=== PATIENT | male | born 1950 | race Caucasian/White ===

== ENCOUNTER 2018-05-21 16:24 | Emergency (ER) | payer OTHER, MEDICARE ==
[~2018-05-21] VITALS: Ht 185.4 cm; Wt 113.6 kg
[~2018-05-21 16:24] MED LIST: AND5P TD; BENA5TAB7 PO; FIOCOC PO
[2018-05-21 17:11] LABS: BASOPHILS % (AUTO) 0.4 % (0-1); EOSINOPHILS # (AUTO) 0.2 X10'3 (0-0.9); EOSINOPHILS % (AUTO) 3.1 % (0-6); HEMOGLOBIN 15.8 g/dl (14.0-17.9); LYMPHOCYTES # (AUTO) 1.2 X10'3 (1.1-4.8); LYMPHOCYTES % (AUTO) 23.4 % (21-51); MEAN CORPUSCULAR HEMOGLOBIN 31.4 PG (27.0-31.0); MEAN CORPUSCULAR HGB CONC 34.4 % (33.0-36.5); MEAN CORPUSCULAR VOLUME 91.5 FL (78-98); MEAN PLATELET VOLUME 8.7 FL (7.4-10.4); MONOCYTES # (AUTO) 0.8 X10'3 (0-0.9); MONOCYTES % (AUTO) 14.8 % (2-12); NEUTROPHILS % (AUTO) 58.3 % (42-75); PLATELET COUNT 235 X10'3 (140-440); RED BLOOD COUNT 5.03 X10'6 (4.70-6.10); RED CELL DISTRIBUTION WIDTH 12.9 % (11.5-14.5); WHITE BLOOD COUNT 5.1 X10'3 (4.5-11.0)
[2018-05-21 17:24] LABS: ALANINE AMINOTRANSFERASE 44 U/L (12-78); ALBUMIN 3.8 G/DL (3.4-5.0); ALBUMIN/GLOBULIN RATIO 1.1 (1.1-1.5); ALKALINE PHOSPHATASE 68 IU/L (46-116); ANION GAP 9 (8-16); ASPARTATE AMINO TRANSFERASE 29 U/L (10-37); BILIRUBIN,TOTAL 0.5 MG/DL (0.1-1.0); BLOOD UREA NITROGEN 13 MG/DL (7-18); CALCIUM 8.5 MG/DL (8.5-10.1); CHLORIDE 101 MMOL/L (99-107); GLUCOSE 175 MG/DL (70-104); POTASSIUM 3.5 MMOL/L (3.5-5.1); SODIUM 136 MMOL/L (135-145); TOTAL CARBON DIOXIDE 25.7 MMOL/L (24-32); TOTAL PROTEIN 7.3 G/DL (6.4-8.2); eGFR 55 ML/MIN
[2018-05-21 17:34] LABS: MAGNESIUM 2.1 MG/DL (1.5-2.4)
[2018-05-21] MEDS ORDERED: ipratropium/albuterol 3ml nebule NEB STA (17:55)
[2018-05-21] MEDS ORDERED: ALBU18HF2 INH (18:48)
[2018-05-21 18:53] VITALS: BP 169/78
== END 2018-05-21 18:54 | disposition home or self-care (01) ==
LOC: ER 16:24
DX: J45.909 Unspecified asthma, uncomplicated (principal); I10 Essential (primary) hypertension; Z79.899 Other long term (current) drug therapy
CPT/HCPCS: 36415; 71045; 80053; 83735; 83880; 84484; 85025; 93005; 94640; 94760; 99285

== ENCOUNTER 2021-12-09 04:51 | Inpatient (IN) | payer OTHER, MEDICARE ==
[~2021-12-09] VITALS: Ht 182.9 cm; Wt 113.6 kg
[~2021-12-09 04:51] MED LIST changes: +ALBU18HF2 INH; +BENA5TAB39 PO; -BENA5TAB7 PO
[2021-12-09 05:17] LABS: EOSINOPHILS # (AUTO) 0.2 X10'3 (0-0.9); NEUTROPHILS # (AUTO) 2.8 X10'3 (1.8-7.7); RED CELL DISTRIBUTION WIDTH 13.7 % (11.5-14.5); WHITE BLOOD COUNT 4.6 X10'3 (4.5-11.0)
[2021-12-09 05:19] LABS: BASOPHILS % (AUTO) 0.6 % (0-1); EOSINOPHILS % (AUTO) 3.8 % (0-6); HEMATOCRIT 53.9 % (42.0-52.0); LYMPHOCYTES % (AUTO) 21.5 % (21-51); MEAN CORPUSCULAR HEMOGLOBIN 30.7 PG (27.0-31.0); MEAN CORPUSCULAR HGB CONC 34.1 g/dL (33.0-36.5); MEAN PLATELET VOLUME 8.5 FL (7.4-10.4); MONOCYTES # (AUTO) 0.6 X10'3 (0-0.9); MONOCYTES % (AUTO) 12.4 % (2-12); NEUTROPHILS % (AUTO) 61.7 % (42-75); PLATELET COUNT 251 X10'3 (140-440); RED BLOOD COUNT 5.99 X10'6 (4.70-6.10)
[2021-12-09 05:29] LABS: HEMOGLOBIN 18.4 g/dl (14.0-17.9)
[2021-12-09 05:34] LABS: ALANINE AMINOTRANSFERASE 47 U/L (12-78); ALBUMIN 4.5 G/DL (3.4-5.0); ALKALINE PHOSPHATASE 88 IU/L (46-116); ANION GAP 12 (8-16); ASPARTATE AMINO TRANSFERASE 49 U/L (10-37); BILIRUBIN,TOTAL 0.7 MG/DL (0.1-1.0); BLOOD UREA NITROGEN 12 MG/DL (7-18); BUN/CREATININE RATIO 9.6 (5.4-32.0); CALCIUM 9.5 MG/DL (8.5-10.1); CHLORIDE 98 MMOL/L (99-107); CREATININE 1.25 MG/DL (0.60-1.10); GLUCOSE 143 MG/DL (70-104); POTASSIUM 3.6 MMOL/L (3.5-5.1); SODIUM 137 MMOL/L (135-145); TOTAL CARBON DIOXIDE 26.7 MMOL/L (24-32); eGFR 57 ML/MIN
--- NOTE | 2021-12-09 06:30 | NUR ---
Pt is awake and alert. at the bedside. Pt denies pain.
[2021-12-09] MEDS ORDERED: potassium CL 10mEq/100ml bag 100 ML IV PRN (09:20)
[2021-12-09] MEDS ORDERED: morphine 2 MG/ML inj. syringe IV PRN ×2 (09:20)
[2021-12-09] MEDS ORDERED: magnesium 4gm in 100ml NS 100 ML IV PRN (09:20)
[2021-12-09] MEDS ORDERED: magnesium hydroxide 30ml (MOM) UD suspension PO PRN (09:20)
[2021-12-09] MEDS ORDERED: regadenoson 0.4mg/5ml syringe IV PRN (09:20)
[2021-12-09] MEDS ORDERED: potassium Cl 20 mEq SR tablet PO PRN ×2 (09:20)
[2021-12-09] MEDS ORDERED: magnesium 2GM in 50ml NS 50 ML IV PRN (09:20)
[2021-12-09] MEDS ORDERED: metoprolol tartrate 1mg/ml inj IV PRN (09:20)
[2021-12-09] MEDS ORDERED: aminophylline 500mg/20ml vial IV PRN (09:20)
[2021-12-09] MEDS ORDERED: magnesium Cl slow-release 64mg tablet PO PRN (09:20)
[2021-12-09] MEDS ORDERED: nitroGLYCERIN 0.4mg SUBLingual tab SL PRN (09:20)
[2021-12-09] MEDS ORDERED: mag hydrox/Alum hydrox/simeth 30ml oral suspension PO PRN (09:20)
[2021-12-09] MEDS ORDERED: acetaminophen 325mg tablet PO PRN (09:20)
[2021-12-09] MEDS ORDERED: ondansetron/PF 4mg/2ml inj IV PRN (09:20)
[2021-12-09 10:02] LABS: MAGNESIUM 2.3 MG/DL (1.5-2.4)
[2021-12-09] MEDS: normal saline 1000ml 1,000 ML IV SCH ×2 (10:28→19:40)
[2021-12-09] MEDS ORDERED: BENA1TAB14 PO (12:29)
[2021-12-09 14:00] VITALS: BP 159/77
--- NOTE | 2021-12-09 14:14 | NUR ---
PAGER ID: [phone] MESSAGE: [id number] Ciaran admit to 3014B caffeine this am, fred tomorrow. HH diet for dinner? [id number]
[2021-12-09 18:00] VITALS: BP 128/83
--- NOTE | 2021-12-09 18:45 | NUR ---
Patient in room PCU 3014. I have received report from Ana M HERNANDEZ and had the opportunity to ask questions and assume patient care.
--- NOTE | 2021-12-09 18:53 | NUR ---
Report to Ruthie HERNANDEZ
[2021-12-09] MEDS: K and/or MAG REPLACEMENT MC SCH (19:11)
[2021-12-09] MEDS: docusate sod 100mg capsule PO SCH (19:41)
[2021-12-09 22:00] VITALS: BP 137/66
[2021-12-10] VITALS (11 sets, daily range): BP systolic 114–161; BP diastolic 53–76
--- NOTE | 2021-12-10 00:57 | NUR ---
cable television line technician notified me pt has gone into second degree type 1 three times. longer NM then dropping. Pt is otherwise in SR in the 70's-80's. Pt is resting comfortably with no complaints. Called hospitalist to let him know of the change. gave no new orders, will continue to monitor.
[2021-12-10] MEDS: normal saline 1000ml 1,000 ML IV SCH ×2 (05:26→15:20)
[2021-12-10 06:11] LABS: BASOPHILS % (AUTO) 0.6 % (0-1); EOSINOPHILS # (AUTO) 0.2 X10'3 (0-0.9); EOSINOPHILS % (AUTO) 3.6 % (0-6); HEMATOCRIT 47.7 % (42.0-52.0); HEMOGLOBIN 16.1 g/dl (14.0-17.9); LYMPHOCYTES # (AUTO) 0.8 X10'3 (1.1-4.8); LYMPHOCYTES % (AUTO) 17.7 % (21-51); MEAN CORPUSCULAR HEMOGLOBIN 30.6 PG (27.0-31.0); MEAN CORPUSCULAR HGB CONC 33.7 g/dL (33.0-36.5); MEAN CORPUSCULAR VOLUME 90.9 FL (78-98); MEAN PLATELET VOLUME 8.8 FL (7.4-10.4); MONOCYTES # (AUTO) 0.7 X10'3 (0-0.9); MONOCYTES % (AUTO) 15.7 % (2-12); NEUTROPHILS # (AUTO) 2.9 X10'3 (1.8-7.7); NEUTROPHILS % (AUTO) 62.4 % (42-75); PLATELET COUNT 227 X10'3 (140-440); RED BLOOD COUNT 5.24 X10'6 (4.70-6.10); RED CELL DISTRIBUTION WIDTH 13.7 % (11.5-14.5); WHITE BLOOD COUNT 4.7 X10'3 (4.5-11.0)
--- NOTE | 2021-12-10 06:28 | NUR ---
Patient in room PCU 3014. I have received report from DAVID Hendricks and had the opportunity to ask questions and assume patient care.
[2021-12-10 06:32] LABS: ALBUMIN 3.4 G/DL (3.4-5.0); ANION GAP 9 (8-16); BLOOD UREA NITROGEN 10 MG/DL (7-18); BUN/CREATININE RATIO 10.8 (5.4-32.0); CALCIUM 8.5 MG/DL (8.5-10.1); CHLORIDE 105 MMOL/L (99-107); CREATININE 0.93 MG/DL (0.60-1.10); GLUCOSE 101 MG/DL (70-104); SODIUM 139 MMOL/L (135-145); TOTAL CARBON DIOXIDE 25.5 MMOL/L (24-32); eGFR 80 ML/MIN
--- NOTE | 2021-12-10 06:43 | NUR ---
Patient in room [facility] 3014. I have received report from Aurora HERNANDEZ and had the opportunity to ask questions and assume patient care. Addendum: 12/10/21 at 0644 by Ruthie Mckeon RN Problems reprioritized. Patient report given, questions answered & plan of care reviewed with Aurora HERNANDEZ.
[2021-12-10 06:51] LABS: PLATELET ESTIMATE NORMAL; TOTAL CELLS COUNTED 100
[2021-12-10] MEDS ORDERED: non-formulary drug (Benazepril/Hydrochlorothiazide (Benazepril-Hctz 20-12.5 Mg Tab) 1 TAB) PO SCH (08:00)
[2021-12-10] MEDS ORDERED: enoxaparin 40mg/0.4ml syringe SUBCUT SCH (08:00)
[2021-12-10] MEDS ORDERED: HYDROchlorothiazide 12.5mg capsule PO SCH (08:00)
[2021-12-10] MEDS: K and/or MAG REPLACEMENT MC SCH (08:00)
[2021-12-10] MEDS: docusate sod 100mg capsule PO SCH (08:00)
[2021-12-10] MEDS ORDERED: lisinopril 20mg tablet PO SCH (08:00)
--- NOTE | 2021-12-10 09:00 | NUR ---
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
[2021-12-10] MEDS ORDERED: regadenoson 0.4mg/5ml syringe IV ONE (11:00)
[2021-12-10] MEDS ORDERED: aminophylline 500mg/20ml vial ONE (11:06)
--- NOTE | 2021-12-10 17:26 | NUR ---
PAGER ID: [phone] MESSAGE: Aurora [id number] Room 3013V Just wanted to let you know the Mayte scan report is in. He is still hoping to be discharged today if you find it appropriate. Thank you.
[2021-12-10] MEDS ORDERED: PANT-47 PO (17:37)
--- NOTE | 2021-12-10 18:00 | NUR ---
Patient was discharged at 1800 with instructions and verbalizing understanding of the instructions in wheelchair accompanied by nursing staff going home via private vehicle. The IV has been removed and cannula was intact. The tele monitor was removed. The medications were escripted to preferred pharmacy, education was provided and questions were answered. Patient will set follow up appointment with provider. Patient is stable and appropriate for discharge.
== END 2021-12-10 18:30 | disposition home or self-care (01) | DRG 313 ==
LOC: ER 04:51 → ED HOLD 09:25 → PCU 3S 14:44
PROVIDERS: ADMIT Family Medicine; ATTEND Family Medicine
PROC: 4A02XM4 Measurement of Cardiac Total Activity, External Approach (ICD-10-PCS; principal; 2021-12-10)
PROC: 3E033HZ Introduction of Radioactive Substance into Peripheral Vein, Percutaneous Approach (ICD-10-PCS; 2021-12-10)
DX: R07.9 Chest pain, unspecified (principal); I10 Essential (primary) hypertension; J45.909 Unspecified asthma, uncomplicated; G47.30 Sleep apnea, unspecified
CPT/HCPCS: 36415; 71045; 78452; 80048; 80053; 83735; 83880; 84484; 85007; 85025; 85610; 87081; 93005; 93017; 93306; 99285; A9500; G0378; J0280; J2785; J7030

== ENCOUNTER 2024-05-24 15:35 | Emergency (ER) | payer MEDICARE, BC ==
[~2024-05-24] VITALS: Ht 182.9 cm; Wt 116.4 kg
[~2024-05-24 15:35] MED LIST changes: -ALBU18HF2 INH; -AND5P TD; +BENA1TAB14 PO; -BENA5TAB39 PO; -FIOCOC PO; +PANT-47 PO
[2024-05-24 16:08] LABS: ALANINE AMINOTRANSFERASE 36 U/L (12-78); ALBUMIN 4.1 G/DL (3.4-5.0); ALKALINE PHOSPHATASE 79 IU/L (46-116); ANION GAP 9 (8-16); ASPARTATE AMINO TRANSFERASE 25 U/L (10-37); BILIRUBIN,TOTAL 0.7 MG/DL (0.1-1.0); BLOOD UREA NITROGEN 16 MG/DL (7-18); CALCIUM 9.3 MG/DL (8.5-10.1); CHLORIDE 102 MMOL/L (99-107); GLUCOSE 106 MG/DL (70-104); POTASSIUM 3.9 MMOL/L (3.5-5.1); SODIUM 136 MMOL/L (135-145); TOTAL PROTEIN 8.2 G/DL (6.4-8.2); eCRCL 37 ML/MIN; eGFR 33 ML/MIN
[2024-05-24 16:16] LABS: PRO BRAIN NATRIURETIC PEPTIDE 53 PG/ML (0-125)
[2024-05-24 16:33] LABS: BASOPHILS # (AUTO) 0.1 X10'3 (0-0.2); BASOPHILS % (AUTO) 0.7 % (0-1); EOSINOPHILS # (AUTO) 0.2 X10'3 (0-0.9); EOSINOPHILS % (AUTO) 1.9 % (0-6); HEMATOCRIT 48.4 % (42.0-52.0); HEMOGLOBIN 16.5 g/dl (14.0-17.9); LYMPHOCYTES # (AUTO) 1.1 X10'3 (1.1-4.8); MEAN CORPUSCULAR HEMOGLOBIN 31.9 PG (27.0-31.0); MEAN CORPUSCULAR HGB CONC 34.1 g/dL (33.0-36.5); MEAN CORPUSCULAR VOLUME 93.5 FL (78-98); MEAN PLATELET VOLUME 8.8 FL (7.4-10.4); MONOCYTES % (AUTO) 9.8 % (2-12); NEUTROPHILS # (AUTO) 7.9 X10'3 (1.8-7.7); NEUTROPHILS % (AUTO) 76.6 % (42-75); PLATELET COUNT 238 X10'3 (140-440); RED BLOOD COUNT 5.18 X10'6 (4.70-6.10); RED CELL DISTRIBUTION WIDTH 13.5 % (11.5-14.5); WHITE BLOOD COUNT 10.3 X10'3 (4.5-11.0)
[2024-05-24 18:43] VITALS: PULSE 74
[2024-05-24 19:21] VITALS: BP 130/64; RESP 19; TEMP 98.2; O2SAT 98
== END 2024-05-24 19:39 | disposition home or self-care (01) ==
LOC: ER 15:36
DX: R79.89 Other specified abnormal findings of blood chemistry (principal); I10 Essential (primary) hypertension; J45.909 Unspecified asthma, uncomplicated; Z79.899 Other long term (current) drug therapy
CPT/HCPCS: 36415; 80053; 83880; 84484; 85025; 93005; 99284